=== PATIENT | male | born 1930 | race Caucasian/White ===

== ENCOUNTER 2016-12-18 21:19 | Emergency (ER) | payer OTHER ==
[~2016-12-18 21:19] MED LIST: CORT1SOL EACH EAR; DORZ2SOL7 EACH EYE; LEVO25TA4 PO; NUCY75TA4 PO; POLY10O LEFT EYE; VENTAER INH; WALKER/ADULT/FO1 MIS
[2016-12-18 21:24] VITALS: BP 147/84; PULSE 98; RESP 20; TEMP 98.1; O2SAT 98
--- NOTE | 2016-12-18 23:05 | RADHPO ---
EXAM DATE/TIME: 12/18/2016 22:55 [facility] COMPARISON: No previous studies available for comparison. INDICATIONS : Cough and congestion for several days. MEDICAL HISTORY : None. SURGICAL HISTORY : None. ENCOUNTER: Initial ACUITY: 4 - 6 days PAIN SCORE: 2/10 LOCATION: Bilateral chest FINDINGS: PA and lateral views of the chest demonstrate the lungs to be symmetrically aerated without evidence of mass, infiltrate or effusion. The cardiomediastinal contours are unremarkable. Spurs are seen in the thoracic spine. CONCLUSION: No acute disease. Tyler Luz MD on December 18, 2016 at 23:03 Board Certified Radiologist. This report was verified electronically.
[2016-12-18] MEDS ORDERED: CEPH-460 PO (23:11)
--- NOTE | 2016-12-18 23:11 | PD ---
HPI Chief Complaint: Cold / Flu Symptoms Time Seen by Provider: 22:24 Travel History International Travel<30 days: No Contact w/Intl Traveler<30days: No Traveled to known affect area: No History of Present Illness HPI Is an 86-year-old male presents emergency Department with upper respiratory symptoms including cough and congestion for the past 3 days, also complains of redness around his left ear. Patient states that he is not seen any other physician denies any fevers. Unclear as to whether his sputum production is coming from postnasal drip or from his lungs. Patient has not spit out the congestion does not know what color. Denies any shortness of breath denies any generalized symptoms including nausea vomiting diarrhea fever abdominal pain chest pain. PFSH Past Medical History Arthritis: Yes Asthma: Yes Blood Disorders: No Cancer: Yes (prostate) Cardiovascular Problems: No COPD: Yes Diabetes: No Diminished Hearing: Yes ([place] ) Endocrine: Yes Gastrointestinal Disorders: No Glaucoma: Yes Hepatitis: No Hiatal Hernia: No Hypertension: No Immune Disorder: No Implanted Vascular Access Dvce: No Medical other: Yes (SINUS CONGESTION) Musculoskeletal: Yes (CHRONIC BACK PAIN) Psychiatric: No Respiratory: Yes (Asthma ) Thyroid Disease: Yes Past Surgical History Abdominal Surgery: Yes (CHOLESTECTOMY) Cholecystectomy: Yes Genitourinary Surgery: Yes (prostate removed) Joint Replacement: Yes (left knee ) Other Surgery: Yes (letf and right knee surgery, lumbar surgery) Social History Alcohol Use: No (QUIT 5 YEARS AGO) Tobacco Use: No (quit 10 yrs smoked 5 cigars a day and 1 ppd cigs) Substance Use: No Allergies-Medications (Allergen,Severity, Reaction): Coded Allergies: Naprosyn (Verified Allergy, Severe, Rash, 12/18/16) Novocain (Verified Allergy, Severe, HEART RACE, 12/18/16) Penicillin (Verified Allergy, Severe, RASH, 12/18/16) WAS STUNG BY BEE AT THE SAME TIME TAKING THE MEDICATION AND NOT SURE IF RASH FROM BEE OR PCN Procaine (Verified Allergy, Unknown, PT DOES NOT KNOW, 12/18/16) Reported Meds & Prescriptions Reported Meds & Active Scripts Active Keflex (Cephalexin) 500 Mg Cap 500 Mg PO Q6H 7 Days Ventolin Hfa 18 GM Inh (Albuterol Sulfate) 90 Mcg/Act Aer 1 Puff INH Q4H PRN Walker/Adult/Folding (Device) 1 Mis Mis 1 Ea .ROUTE DIRECTED Reported Nucynta (Tapentadol) 75 Mg Tab 100 Mg PO Q4H PRN Cosopt Opth Drops (Dorzolamide-Timolol Opth Drops) 22.3-6.8 Mg/Ml Soln 1 Drop EACH EYE BID Levothyroxine (Levothyroxine Sodium) 25 Mcg Tab 25 Mcg PO MOWEFR Review of Systems Except as stated in HPI: all other systems reviewed are Neg Physical Exam Narrative GENERAL: Well-developed well-nourished no apparent distress, appears quite well and younger than stated age. SKIN: Warm and dry. There is some mild erythema on the left side of his face surrounding his left ear. HEAD: Atraumatic. Normocephalic. EYES: Pupils equal and round. No scleral icterus. No injection or drainage. ENT: No nasal bleeding or discharge. Mucous membranes pink and moist. TMs and canals clear bilaterally. Oropharynx clear and moist. NECK: Trachea midline. No JVD. CARDIOVASCULAR: Regular rate and rhythm. No murmur appreciated. RESPIRATORY: No accessory muscle use. Clear to auscultation. Breath sounds equal bilaterally. No increased work of breathing, no retractions. GASTROINTESTINAL: Abdomen soft, non-tender, nondistended. Hepatic and splenic margins not palpable. MUSCULOSKELETAL: No obvious deformities. No clubbing. No cyanosis. No edema. NEUROLOGICAL: Awake and alert. No obvious cranial nerve deficits. Motor grossly within normal limits. Normal speech. PSYCHIATRIC: Appropriate mood and affect; insight and judgment normal. Data Data Last Documented VS Vital Signs Date Time Temp Pulse Resp B/P Pulse Ox O2 Delivery O2 Flow Rate FiO2 12/18/16 23:24 76 17 118/70 98 12/18/16 21:24 98.1 Orders Chest, Pa & Lat (12/18/16 ) [facility] Medical Decision Making Medical Screen Exam Complete: Yes Emergency Medical Condition: Yes Differential Diagnosis Cough, URI, pneumonia, facial cellulitis, atopic dermatitis, otitis externa. Narrative Course Patient roomed in the emergency department, appears quite well and in no apparent distress. Chest x-ray shows no acute cardiopulmonary abnormality. Last 24 hours Impressions Chest X-Ray 12/18/16 0000 Signed Impressions: Service Date/Time: Sunday, December 18, 2016 22:55 - CONCLUSION: No acute disease. Tyler Luz MD Patient vital signs are reassuring. He has no increased work of breathing is stable for discharge. The rash is left side of his face is unknown etiology. Could be consistent with malignant otitis externa however there is no otitis externa on his examination ear canals. We'll place on antibiotics and discussed need for follow-up with his primary care physician and return to ED criteria. Diagnosis Primary Impression: Rash of face Additional Impression: URI (upper respiratory infection) Qualified Code: J06.9 - Upper respiratory tract infection, unspecified type Med/Other Pt SpecificInfo: Prescription(s) given Scripts Cephalexin (Keflex)500 Mg [id number] Mg PO Q6H 7 Days Ref 0 Prov:Trey Alvares MD 12/18/16 Disposition: 01 DISCHARGE HOME Condition: Stable Trey Alvares MD Dec 18, 2016 23:11
[2016-12-18 23:24] VITALS: BP 118/70
== END 2016-12-18 23:34 | disposition home or self-care (01) ==
LOC: PHED 21:19
DX: R21 Rash and other nonspecific skin eruption (principal); J06.9 Acute upper respiratory infection, unspecified; R05 Cough; E07.9 Disorder of thyroid, unspecified; H91.90 Unspecified hearing loss, unspecified ear; Z87.39 Personal history of other diseases of the musculoskeletal system and connective tissue; Z87.09 Personal history of other diseases of the respiratory system; Z85.46 Personal history of malignant neoplasm of prostate; Z86.69 Personal history of other diseases of the nervous system and sense organs; Z87.891 Personal history of nicotine dependence
CPT/HCPCS: 71020; 99283

== ENCOUNTER 2017-01-17 12:06 | Emergency (ER) | payer OTHER ==
[~2017-01-17] VITALS: Ht 177.8 cm; Wt 90.5 kg
[~2017-01-17 12:06] MED LIST changes: +CEPH-460 PO; -CORT1SOL EACH EAR; -POLY10O LEFT EYE
[2017-01-17 12:21] VITALS: BP 126/87; PULSE 112; RESP 18; TEMP 97.6; O2SAT 96
[2017-01-17 14:00] VITALS: BP 116/81; PULSE 99; RESP 18; O2SAT 96
--- NOTE | 2017-01-17 14:06 | PD ---
HPI Chief Complaint: Cold / Flu Symptoms Time Seen by Provider: 13:51 Travel History International Travel<30 days: No Contact w/Intl Traveler<30days: No Traveled to known affect area: No History of Present Illness HPI This 86-year-old male says he has not been feeling well for several days. He's had a cough and is had a loss of appetite. He has not had a good appetite the last 3 days. He has been a smoker for 70 years. He stopped several years ago and diagnosed with COPD. he has not been sleeping well and he has not been eating well. Patient states he has been sick for 4-5 days PFSH Past Medical History Arthritis: Yes Asthma: Yes Blood Disorders: No Cancer: Yes (Prostate ) Cardiovascular Problems: No COPD: Yes Diabetes: No Diminished Hearing: Yes ([place]) Endocrine: Yes Gastrointestinal Disorders: No Glaucoma: Yes Hepatitis: No Hiatal Hernia: No Hypertension: No Immune Disorder: No Implanted Vascular Access Dvce: No Musculoskeletal: Yes (Chronic back pain ) Psychiatric: No Respiratory: Yes (Asthma ) Thyroid Disease: Yes Tetanus Vaccination: < 5 Years Influenza Vaccination: Yes Past Surgical History Abdominal Surgery: Yes (CHOLESTECTOMY) Cholecystectomy: Yes Genitourinary Surgery: Yes (Prostatectomy ) Joint Replacement: Yes (Lt. knee) Other Surgery: Yes (BL knees, lumbar ) Social History Alcohol Use: No Tobacco Use: No Substance Use: No Allergies-Medications (Allergen,Severity, Reaction): Coded Allergies: Naprosyn (Verified Allergy, Severe, Rash, 01/17/17) Novocain (Verified Allergy, Severe, HEART RACE, 01/17/17) Penicillin (Verified Allergy, Severe, RASH, 01/17/17) WAS STUNG BY BEE AT THE SAME TIME TAKING THE MEDICATION AND NOT SURE IF RASH FROM BEE OR PCN Procaine (Verified Allergy, Unknown, PT DOES NOT KNOW, 01/17/17) Reported Meds & Prescriptions Reported Meds & Active Scripts Active Ventolin Hfa 18 GM Inh (Albuterol Sulfate) 90 Mcg/Act Aer 1 Puff INH Q4H PRN Reported Cosopt Opth Drops (Dorzolamide-Timolol Opth Drops) 22.3-6.8 Mg/Ml Soln 1 Drop EACH EYE BID Levothyroxine (Levothyroxine Sodium) 25 Mcg Tab 25 Mcg PO MOWEFR Review of Systems General / Constitutional: No: Fever, Chills Eyes: No: Diploplia, Blurred Vision HENT: No: Headaches Cardiovascular: No: Chest Pain or Discomfort Respiratory: Positive: Cough, Shortness of Breath Gastrointestinal: Positive: Loss of Appetite, No: Diarrhea Genitourinary: No: Urgency, Frequency Musculoskeletal: No: Myalgias Skin: No Rash, No Itching Neurologic: Positive: Weakness Endocrine: No: Heat Intolerance Hematologic/Lymphatic: No: Easy Bruising Physical Exam Narrative GENERAL: Well-developed male SKIN: Warm and dry. HEAD: Atraumatic. Normocephalic. EYES: Pupils equal and round. No scleral icterus. No injection or drainage. ENT: No nasal bleeding or discharge. Mucous membranes pink and moist. NECK: Trachea midline. No JVD. CARDIOVASCULAR: Regular rate and rhythm. No murmur appreciated. RESPIRATORY: No accessory muscle use. Clear to auscultation. There are occasional rhonchi Breath sounds equal bilaterally. GASTROINTESTINAL: Abdomen soft, non-tender, nondistended. Hepatic and splenic margins not palpable. MUSCULOSKELETAL: No obvious deformities. No clubbing. No cyanosis. Trace bilateral edema. NEUROLOGICAL: Awake and alert. No obvious cranial nerve deficits. Motor grossly within normal limits. Normal speech. PSYCHIATRIC: Appropriate mood and affect; insight and judgment normal. Data Data Last Documented VS Vital Signs Date Time Temp Pulse Resp B/P Pulse Ox O2 Delivery O2 Flow Rate FiO2 01/17/17 14:00 99 18 116/81 96 Room Air 01/17/17 12:21 97.6 Orders Complete Blood Count With Diff (01/17/17 14:02) Comprehensive Metabolic Panel (01/17/17 14:02) Influenzae A/B Antigen (01/17/17 14:02) Chest, Single Ap (01/17/17 14:02) Labs Laboratory Tests Test 01/17/17 14:25 White Blood Count 12.6 TH/MM3 Red Blood Count 4.84 MIL/MM3 Hemoglobin 13.4 GM/DL Hematocrit 41.3 % Mean Corpuscular Volume 85.4 FL Mean Corpuscular Hemoglobin 27.7 PG Mean Corpuscular Hemoglobin 32.5 % Concent Red Cell Distribution Width 14.1 % Platelet Count 241 TH/MM3 Mean Platelet Volume 8.1 FL Neutrophils (%) (Auto) 33.6 % Lymphocytes (%) (Auto) 53.1 % Monocytes (%) (Auto) 11.6 % Eosinophils (%) (Auto) 0.8 % Basophils (%) (Auto) 0.9 % Neutrophils # (Auto) 4.3 TH/MM3 Lymphocytes # (Auto) 6.6 TH/MM3 Monocytes # (Auto) 1.5 TH/MM3 Eosinophils # (Auto) 0.1 TH/MM3 Basophils # (Auto) 0.1 TH/MM3 CBC Comment AUTO DIFF Differential Total Cells 100 Counted Neutrophils % (Manual) 42 % Band Neutrophils % 1 % Lymphocytes % 32 % Monocytes % 7 % Neutrophils # (Manual) 5.4 TH/MM3 Differential Comment FINAL DIFF MANUAL Atypical Lymphocytes 18 % Platelet Estimate NORMAL Platelet Morphology Comment NORMAL Red Cell Morphology Comment NORMAL Sodium Level 141 MEQ/L Potassium Level 4.2 MEQ/L Chloride Level 104 MEQ/L Carbon Dioxide Level 27.0 MEQ/L Anion Gap 10 MEQ/L Blood Urea Nitrogen 15 MG/DL Creatinine 1.00 MG/DL Estimat Glomerular Filtration 71 ML/MIN Rate Random Glucose 108 MG/DL Calcium Level 8.8 MG/DL Total Bilirubin 1.0 MG/DL Aspartate Amino Transf 100 U/L (AST/SGOT) Alanine Aminotransferase 71 U/L (ALT/SGPT) Alkaline Phosphatase 99 U/L Total Protein 7.1 GM/DL Albumin 2.8 GM/DL MDM Medical Decision Making Medical Screen Exam Complete: Yes Emergency Medical Condition: Yes Medical Record Reviewed: Yes Differential Diagnosis Differential includes pneumonia, influenza, viral syndrome Narrative Course Tests for influenza is positive for influenza a. Patient has been sick for 4-5 days; prescribed Tamiflu. I will recommend Tylenol or aspirin. He is to force fluids. Minimal parenchymal density at the bases described. His white count shows a predominance of lymphocytes and I will not prescribe antibiotics. He is stable for discharge Diagnosis Primary Impression: Influenza A Additional Instructions: Take Tylenol or Motrin for fever, force fluids Disposition: 01 DISCHARGE HOME Condition: Stable Khang Bey MD Jan 17, 2017 14:06
[2017-01-17 14:37] LABS: AUTOMATED NEUTROPHIL # 4.3 TH/MM3 (1.8-7.7); BASOPHIL # 0.1 TH/MM3 (0-0.2); BASOPHIL % 0.9 % (0.0-2.0); EOSINOPHIL # 0.1 TH/MM3 (0-0.4); EOSINOPHIL % 0.8 % (0.0-4.0); HEMATOCRIT 41.3 % (39.0-51.0); LYMPH % 53.1 % (9.0-44.0); LYMPHOCYTE # 6.6 TH/MM3 (1.0-4.8); MEAN CELL VOLUME 85.4 FL (80.0-100.0); MEAN CORPUSCULAR HEMOGLOBIN 27.7 PG (27.0-34.0); MEAN CORPUSCULAR HGB CONC 32.5 % (32.0-36.0); MONO % 11.6 % (0.0-8.0); NEUT % 33.6 % (16.0-70.0); PLATELET COUNT 241 TH/MM3 (150-450); RED BLOOD COUNT 4.84 MIL/MM3 (4.50-5.90); RED CELL DISTRIBUTION WIDTH 14.1 % (11.6-17.2); WHITE BLOOD COUNT 12.6 TH/MM3 (4.0-11.0)
[2017-01-17 14:42] LABS: HEMO FLAGS AUTO DIFF
--- NOTE | 2017-01-17 14:42 | RADHPO ---
EXAM DATE/TIME: 01/17/2017 14:20 [facility] COMPARISON: CHEST SINGLE AP, October 25, 2016, 15:05. CHEST PA & LAT, December 18, 2016, 22:55. INDICATIONS : Short of breath, nausea. MEDICAL HISTORY : None. SURGICAL HISTORY : None. ENCOUNTER: Initial ACUITY: 1 week PAIN SCORE: 0/10 LOCATION: Bilateral chest FINDINGS: There is minimal parenchymal opacity at the left lung base. Right lung is grossly clear. No effusion suspected. Cardiomediastinal contours are stable. There are arthritic changes in the shoulders and sp ine. CONCLUSION: Minimal parenchymal opacity at the left lung base Tyler Baxter MD on January 17, 2017 at 14:39 Board Certified Radiologist. This report was verified electronically.
[2017-01-17 14:51] LABS: CHLORIDE 104 MEQ/L (98-107); POTASSIUM 4.2 MEQ/L (3.5-5.1); SODIUM (NA) 141 MEQ/L (136-145)
[2017-01-17 14:55] LABS: ANION GAP 10 MEQ/L (5-15); BLOOD UREA NITROGEN 15 MG/DL (7-18)
[2017-01-17 14:58] LABS: ALT (GPT) 71 U/L (12-78); AST (GOT) 100 U/L (15-37); GLOMERULAR FILTRATION RATE 71 ML/MIN (>89)
[2017-01-17 15:01] LABS: ALKALINE PHOSPHATASE 99 U/L (45-117)
[2017-01-17 15:11] LABS: ATYPICAL LYMPHOCYTES 18 % (0-0); BANDS 1 % (0-6); NEUTROPHIL # MANUAL DIFF 5.4 TH/MM3 (1.8-7.7); POLYS (SEG NEUTROPHILS) 42 % (16-70); WBC DIFF SAMPLE 100
[2017-01-17 15:12] LABS: PLATELET ESTIMATE SMEAR NORMAL (NORMAL); PLATELET MORPHOLOGY NORMAL (NORMAL); SCAN/DIFF FINAL DIFF MANUAL
[2017-01-17 15:35] VITALS: BP 107/69; PULSE 95; RESP 18; O2SAT 100
== END 2017-01-17 15:40 | disposition home or self-care (01) ==
LOC: PHED 12:06
DX: J09.X2 Influenza due to identified novel influenza A virus with other respiratory manifestations (principal); J44.9 Chronic obstructive pulmonary disease, unspecified
CPT/HCPCS: 71010; 80053; 85007; 85027; 87804; 99283

== ENCOUNTER 2017-04-03 18:31 | Emergency (ER) | payer OTHER ==
[~2017-04-03] VITALS: Ht 167.6 cm; Wt 91.5 kg
[~2017-04-03 18:31] MED LIST changes: -CEPH-460 PO; -NUCY75TA4 PO; -WALKER/ADULT/FO1 MIS
[2017-04-03 18:35] VITALS: BP 123/73; PULSE 79; RESP 20; TEMP 97.9; O2SAT 96
[2017-04-03] MEDS ORDERED: methylPREDNISolone SOD SUCC 125 MG/2 ML VIAL IVP ONE (18:45)
[2017-04-03] MEDS ORDERED: SODIUM CHLORIDE 0.9% FLUSH 10 ML FLUSH IVF PRN (18:45)
--- NOTE | 2017-04-03 18:46 | PD ---
HPI Chief Complaint: Respiratory Symptoms Time Seen by Provider: 18:40 Travel History International Travel<30 days: No Contact w/Intl Traveler<30days: No Traveled to known affect area: No History of Present Illness HPI Patient is an 86 year old male with history of COPD and hypothyroidism presents to ER for evaluation of wheezing, cough and sob x 1 day. Reports that he was using his neb Treatments with no relief of symptoms. Patient reports that his cough is productive, no fevers or chills. Denies any chest pain or shortness breath. PFSH Past Medical History Hx Anticoagulant Therapy: Yes (ASA DAILY) Arthritis: Yes Asthma: Yes Blood Disorders: No Cancer: Yes (Prostate ) Cardiovascular Problems: No COPD: Yes Diabetes: No Diminished Hearing: Yes ([place]) Endocrine: Yes Gastrointestinal Disorders: No Glaucoma: Yes Hepatitis: No Hiatal Hernia: No Hypertension: No Immune Disorder: No Implanted Vascular Access Dvce: No Musculoskeletal: Yes (Chronic back pain ) Psychiatric: No Respiratory: Yes (COPD) Thyroid Disease: Yes Past Surgical History Abdominal Surgery: Yes (CHOLESTECTOMY) Cholecystectomy: Yes Genitourinary Surgery: Yes (Prostatectomy ) Joint Replacement: Yes (Lt. knee) Other Surgery: Yes (BL knees, lumbar ) Social History Alcohol Use: No Tobacco Use: No Substance Use: No Allergies-Medications (Allergen,Severity, Reaction): Coded Allergies: Naprosyn (Verified Allergy, Severe, Rash, 04/03/17) Novocain (Verified Allergy, Severe, HEART RACE, 04/03/17) Penicillin (Verified Allergy, Severe, RASH, 04/03/17) WAS STUNG BY BEE AT THE SAME TIME TAKING THE MEDICATION AND NOT SURE IF RASH FROM BEE OR PCN Procaine (Verified Allergy, Unknown, PT DOES NOT KNOW, 04/03/17) Reported Meds & Prescriptions Reported Meds & Active Scripts Active Ventolin Hfa 18 GM Inh (Albuterol Sulfate) 90 Mcg/Act Aer 1 Puff INH Q4H PRN Reported Cosopt Opth Drops (Dorzolamide-Timolol Opth Drops) 22.3-6.8 Mg/Ml Soln 1 Drop EACH EYE BID Levothyroxine (Levothyroxine Sodium) 25 Mcg Tab 25 Mcg PO MOWEFR Review of Systems General / Constitutional: No: Fever Eyes: No: Visual changes HENT: No: Headaches Cardiovascular: No: Chest Pain or Discomfort Respiratory: Positive: Cough, Wheezing, No: Shortness of Breath Gastrointestinal: No: Abdominal Pain Genitourinary: No: Dysuria Musculoskeletal: No: Pain Skin: No Rash Neurologic: No: Weakness Psychiatric: No: Depression Endocrine: No: Polydipsia Hematologic/Lymphatic: No: Easy Bruising Physical Exam Narrative GENERAL: Moderate distress SKIN: Focused skin assessment warm/dry. HEAD: Atraumatic. Normocephalic. EYES: Pupils equal and round. No scleral icterus. No injection or drainage. ENT: No nasal bleeding or discharge. Mucous membranes pink and moist. NECK: Trachea midline. No JVD. CARDIOVASCULAR: Regular rate and rhythm. No murmur appreciated. RESPIRATORY: No accessory muscle use. Patient with scattered wheezing on exam GASTROINTESTINAL: Abdomen soft, non-tender, nondistended. Hepatic and splenic margins not palpable. MUSCULOSKELETAL: No obvious deformities. No clubbing. No cyanosis. No edema. NEUROLOGICAL: Awake and alert. No obvious cranial nerve deficits. Motor grossly within normal limits. Normal speech. PSYCHIATRIC: Appropriate mood and affect; insight and judgment normal. Data Data Last Documented VS Vital Signs Date Time Temp Pulse Resp B/P Pulse Ox O2 Delivery O2 Flow Rate FiO2 04/03/17 18:35 97.9 79 20 123/73 96 Orders Complete Blood Count With Diff (04/03/17 18:44) Comprehensive Metabolic Panel (04/03/17 18:44) B-Type Natriuretic Peptide (04/03/17 18:44) Act Partial Throm Time (Ptt) (04/03/17 18:44) Prothrombin Time / Inr (Pt) (04/03/17 18:44) Magnesium (Mg) (04/03/17 18:44) Iv Access Insert/Monitor (04/03/17 18:44) Electrocardiogram (04/03/17 18:44) Ecg Monitoring (04/03/17 18:44) Oximetry (04/03/17 18:44) Chest, Single Ap (04/03/17 18:44) Sodium Chloride 0.9% Flush (Ns Flush) (04/03/17 18:45) Methylprednisolone So Succ Inj (Solumedr (04/03/17 18:45) Albuterol-Ipratropium Neb (Duoneb Neb) (04/03/17 18:45) [facility] Medical Decision Making Medical Screen Exam Complete: Yes Emergency Medical Condition: Yes Interpretation(s) Vital Signs Date Time Temp Pulse Resp B/P Pulse Ox O2 Delivery O2 Flow Rate FiO2 04/03/17 18:35 97.9 79 20 123/73 96 Differential Diagnosis Pneumonia, COPD exacerbation, viral syndrome Narrative Course 86-year-old male who presents to emergency room with complaints of wheezing and coughing for the past day. Patient with diffuse wheezing on exam, patient with most likely COPD exacerbation, x-ray of chest ordered, steroids ordered, neb treatments ordered. patient signed out to dr. escalera at change of shift Grace Rios DO Apr 03, 2017 18:46
[2017-04-03] MEDS: RESP: ALBUTEROL 2.5 MG/IPRATROPIUM 0.5 MG NEB (SCH) INH (18:50)
[2017-04-03 19:00] VITALS: O2SAT 92
[2017-04-03 19:02] LABS: AUTOMATED NEUTROPHIL # 4.8 TH/MM3 (1.8-7.7); BASOPHIL # 0.1 TH/MM3 (0-0.2); EOSINOPHIL # 0.3 TH/MM3 (0-0.4); EOSINOPHIL % 3.7 % (0.0-4.0); HEMATOCRIT 38.3 % (39.0-51.0); HEMO FLAGS DIFF FINAL; LYMPH % 27.3 % (9.0-44.0); LYMPHOCYTE # 2.3 TH/MM3 (1.0-4.8); MEAN CELL VOLUME 87.8 FL (80.0-100.0); MEAN CORPUSCULAR HEMOGLOBIN 28.4 PG (27.0-34.0); MEAN CORPUSCULAR HGB CONC 32.3 % (32.0-36.0); MONO % 11.4 % (0.0-8.0); NEUT % 56.6 % (16.0-70.0); PLATELET COUNT 205 TH/MM3 (150-450); RED BLOOD COUNT 4.36 MIL/MM3 (4.50-5.90); RED CELL DISTRIBUTION WIDTH 13.2 % (11.6-17.2); WHITE BLOOD COUNT 8.5 TH/MM3 (4.0-11.0)
--- NOTE | 2017-04-03 19:06 | RADHPO ---
EXAM DATE/TIME: 04/03/2017 19:00 [facility] COMPARISON: CHEST SINGLE AP, January 17, 2017, 14:20. INDICATIONS : Shortness of breath for 3 days MEDICAL HISTORY : Chronic obstructive pulmonary disease. Asthma SURGICAL HISTORY : None. ENCOUNTER: Initial ACUITY: 3 days PAIN SCORE: 0/10 LOCATION: Bilateral chest FINDINGS: A single view of the chest demonstrates the lungs to be symmetrically aerated without evidence of mas s, infiltrate or effusion. The cardiomediastinal contours are unremarkable. Chronic right rotator cu ff degeneration is noted with superior migration of the humeral head and degenerative change in the c hronic clavicular joint. CONCLUSION: No acute disease. Walt Jones MD on April 03, 2017 at 19:04 Board Certified Radiologist. This report was verified electronically.
[2017-04-03 19:14] LABS: CHLORIDE 108 MEQ/L (98-107); POTASSIUM 4.3 MEQ/L (3.5-5.1); SODIUM (NA) 142 MEQ/L (136-145)
[2017-04-03 19:18] LABS: ANION GAP 4 MEQ/L (5-15); BICARBONATE 29.9 MEQ/L (21.0-32.0); BLOOD UREA NITROGEN 11 MG/DL (7-18)
[2017-04-03 19:20] LABS: APTT (PATIENT) 29.7 SEC (24.3-30.1); INTERNATIONAL NORMALIZED RATIO 1.1 RATIO; PROTHROMBIN TIME - PATIENT 11.8 SEC (9.8-11.6)
[2017-04-03 19:21] LABS: ALT (GPT) 27 U/L (12-78); AST (GOT) 27 U/L (15-37)
[2017-04-03 19:22] LABS: GLOMERULAR FILTRATION RATE 87 ML/MIN (>89)
[2017-04-03 19:23] LABS: TOTAL BILIRUBIN ADULT 0.7 MG/DL (0.2-1.0)
--- NOTE | 2017-04-03 19:23 | PD ---
Physical Exam Date Seen by Provider: Apr 03, 2017 Time Seen by Provider: 19:14 Narrative Accepted in transfer of care from Dr. Rios GENERAL: Well-developed well-nourished male in no acute distress no respiratory distress presently receiving and nebulized treatment. SKIN: Warm and dry. HEAD: Normocephalic. EYES: No scleral icterus. No injection or drainage. NECK: Supple, trachea midline. No JVD or lymphadenopathy. CARDIOVASCULAR: Regular rate and rhythm without murmurs, gallops, or rubs. RESPIRATORY: Breath sounds equal bilaterally few expiratory wheezes. No accessory muscle use. Data Data Last Documented VS Vital Signs Date Time Temp Pulse Resp B/P Pulse Ox O2 Delivery O2 Flow Rate FiO2 04/03/17 18:35 97.9 79 20 123/73 96 Orders Complete Blood Count With Diff (04/03/17 18:44) Comprehensive Metabolic Panel (04/03/17 18:44) B-Type Natriuretic Peptide (04/03/17 18:44) Act Partial Throm Time (Ptt) (04/03/17 18:44) Prothrombin Time / Inr (Pt) (04/03/17 18:44) Magnesium (Mg) (04/03/17 18:44) Iv Access Insert/Monitor (04/03/17 18:44) Electrocardiogram (04/03/17 18:44) Ecg Monitoring (04/03/17 18:44) Oximetry (04/03/17 18:44) Chest, Single Ap (04/03/17 18:44) Sodium Chloride 0.9% Flush (Ns Flush) (04/03/17 18:45) Methylprednisolone So Succ Inj (Solumedr (04/03/17 18:45) Albuterol-Ipratropium Neb (Duoneb Neb) (04/03/17 18:45) Labs Laboratory Tests Test 04/03/17 18:45 White Blood Count 8.5 TH/MM3 Red Blood Count 4.36 MIL/MM3 Hemoglobin 12.4 GM/DL Hematocrit 38.3 % Mean Corpuscular Volume 87.8 FL Mean Corpuscular Hemoglobin 28.4 PG Mean Corpuscular Hemoglobin 32.3 % Concent Red Cell Distribution Width 13.2 % Platelet Count 205 TH/MM3 Mean Platelet Volume 7.5 FL Neutrophils (%) (Auto) 56.6 % Lymphocytes (%) (Auto) 27.3 % Monocytes (%) (Auto) 11.4 % Eosinophils (%) (Auto) 3.7 % Basophils (%) (Auto) 1.0 % Neutrophils # (Auto) 4.8 TH/MM3 Lymphocytes # (Auto) 2.3 TH/MM3 Monocytes # (Auto) 1.0 TH/MM3 Eosinophils # (Auto) 0.3 TH/MM3 Basophils # (Auto) 0.1 TH/MM3 CBC Comment DIFF FINAL Differential Comment Prothrombin Time 11.8 SEC Prothromb Time International 1.1 RATIO Ratio Activated Partial 29.7 SEC Thromboplast Time Sodium Level 142 MEQ/L Potassium Level 4.3 MEQ/L Chloride Level 108 MEQ/L Carbon Dioxide Level 29.9 MEQ/L Anion Gap 4 MEQ/L Blood Urea Nitrogen 11 MG/DL Creatinine 0.84 MG/DL Estimat Glomerular Filtration 87 ML/MIN Rate Random Glucose 96 MG/DL Calcium Level 8.4 MG/DL Magnesium Level 2.0 MG/DL Total Bilirubin 0.7 MG/DL Aspartate Amino Transf 27 U/L (AST/SGOT) Alanine Aminotransferase 27 U/L (ALT/SGPT) Alkaline Phosphatase 91 U/L B-Type Natriuretic Peptide 123 PG/ML Total Protein 7.3 GM/DL Albumin 3.3 GM/DL [facility] Medical Record Reviewed: Yes Supervised Visit with PATRICIO: No Interpretation(s) EKG normal sinus rhythm rate [address] elevation, right bundle branch block ; noted 09/2016 Last Impressions Chest X-Ray 04/03/17 [id number] Signed Impressions: Service Date/Time: Monday, April 03, 2017 19:00 - CONCLUSION: No acute disease. Walt Jones MD Vital Signs Date Time Temp Pulse Resp B/P Pulse Ox O2 Delivery O2 Flow Rate FiO2 04/03/17 18:35 97.9 79 20 123/73 96 CBC & BMP Diagram 04/03/17 18:45 BNP: 123, min elevated Differential Diagnosis Accepted in transfer of care from Dr. Rios, please refer to her dictation Narrative Course Accepted in transfer of care from Dr. Rios, follow up of med response and disposition Patient reassessed lung sounds are clear, patient able to ambulate about the ED without dyspnea; reports feels markedly improved since DuoNeb treatments. Patient has nebulizer at home and needs medication for his nebulizer. Patient is stable at this time for outpatient management and close follow-up with his primary care physician. We'll prescribe DuoNeb solution for his nebulizer and a Medrol Dosepak with recommended close follow-up with primary care provider and return to the emergency department for any recurrence of symptoms or change in condition. Patient understands diagnosis and discharge plan/recommendations. Diagnosis Primary Impression: COPD (chronic obstructive pulmonary disease) Referrals: Primary Care Physician 2 days Patient Instructions: General Instructions Additional Instruction: Use nebulized treatments as prescribed Complete course of steroid Follow-up with primary care provider call office in a.m. to schedule follow-up appointment Return to the emergency for free concerns or change in condition Monitor temperature for fever and take acetaminophen/Tylenol for fever 100.4F or greater Return to the emergency department for fever, pain, recurrent symptoms, or any concerns Med/Other Pt SpecificInfo: Prescription(s) given Scripts Methylprednisolone Dosepak (Medrol Dosepak)4 Mg Dspk4 Mg PO DIRECTED #1 DSPK Ref 0 Per Pharmacist direction Prov:Naz Gray MD 04/03/17 Ipratropium-Albuterol Neb (Duoneb)0.5-2.5 Mg/3 Ml Neb1 Nebule INH Q4-6H #180 NEBULE Ref 0 Prov:Naz Gray MD 04/03/17 Disposition: 01 DISCHARGE HOME Condition: Stable Naz Gray MD Apr 03, 2017 19:23
[2017-04-03 19:24] LABS: ALKALINE PHOSPHATASE 91 U/L (45-117)
[2017-04-03] MEDS ORDERED: MEDR4PAK PO (20:00)
[2017-04-03] MEDS ORDERED: IPRASOL INH (20:00)
[2017-04-03 20:18] VITALS: BP 121/69; TEMP 98
--- NOTE | 2017-04-04 14:41 | EKG ---
Date Performed: 04/03/2017 Time Performed: 18:51:10 PTAGE: 86 years EKG: Sinus rhythm with borderline 1st degree A-V block Leftward axis Right bundle branch block Low QRS voltages in pre cordial leads Abnormal ECG PREVIOUS TRACING : 10/25/2016 14.26 Compared to previous tracing, first-degree AV block is new. DOCTOR: Joe Irene Interpretating Date/Time 04/04/2017 14:39:55
== END 2017-04-03 20:27 | disposition home or self-care (01) ==
LOC: PHED 18:31
DX: J44.9 Chronic obstructive pulmonary disease, unspecified (principal); J45.909 Unspecified asthma, uncomplicated; Z79.899 Other long term (current) drug therapy
CPT/HCPCS: 71010; 80053; 83735; 83880; 85025; 85610; 85730; 93005; 94640; 94664; 96374; 99285; J2930

== ENCOUNTER 2017-07-21 16:26 | Emergency (ER) | payer OTHER ==
[~2017-07-21] VITALS: Ht 167.6 cm; Wt 94.0 kg
[~2017-07-21 16:26] MED LIST changes: +IPRASOL INH; +MEDR4PAK PO
[2017-07-21 16:42] VITALS: BP 138/69; PULSE 85; RESP 16; TEMP 97.9; O2SAT 95
[2017-07-21] MEDS ORDERED: LEVO50TA4 PO (17:08)
[2017-07-21] MEDS ORDERED: AZIT250T3 PO (17:29)
[2017-07-21] MEDS ORDERED: PRED20 PO (17:29)
--- NOTE | 2017-07-21 17:30 | PD ---
HPI Chief Complaint: Cold / Flu Symptoms Time Seen by Provider: 17:06 Travel History International Travel<30 days: No Contact w/Intl Traveler<30days: No Traveled to known affect area: No History of Present Illness HPI This is an 87-year-old male who has a history of COPD who presents to the emergency department with increasing shortness of breath and productive cough with echols sputum, constant, moderate severity associated with a fever 200 several days ago. He denies any chest pain. He says he's been using his nebulizer once a day and it really helps him but he was afraid to use it more than once a day he wasn't sure if he was allowed. PFSH Past Medical History Hx Anticoagulant Therapy: Yes (ASA DAILY) Arthritis: Yes Asthma: Yes Blood Disorders: No Cancer: Yes (Prostate ) Cardiovascular Problems: No COPD: Yes Diabetes: No Diminished Hearing: Yes ([place]) Endocrine: Yes Gastrointestinal Disorders: No Glaucoma: Yes Hepatitis: No Hiatal Hernia: No Hypertension: No Immune Disorder: No Implanted Vascular Access Dvce: No Musculoskeletal: Yes (Chronic back pain ) Psychiatric: No Respiratory: Yes (COPD) Thyroid Disease: Yes Past Surgical History Abdominal Surgery: Yes (CHOLESTECTOMY) Cholecystectomy: Yes Genitourinary Surgery: Yes (Prostatectomy ) Joint Replacement: Yes (LEFT KNEE) Other Surgery: Yes (BL knees, lumbar ) Social History Alcohol Use: No Tobacco Use: No (QUIT 2008) Substance Use: No Allergies-Medications (Allergen,Severity, Reaction): Coded Allergies: naproxen (Unverified Allergy, Severe, Rash, 07/21/17) penicillin G (Unverified Allergy, Severe, RASH, 07/21/17) WAS STUNG BY BEE AT THE SAME TIME TAKING THE MEDICATION AND NOT SURE IF RASH FROM BEE OR PCN procaine (Unverified Allergy, Unknown, PT DOES NOT KNOW, 07/21/17) Reported Meds & Prescriptions Reported Meds & Active Scripts Active Reported Levothyroxine (Levothyroxine Sodium) 50 Mcg Tab 50 Mcg PO DAILY Cosopt Opth Drops (Dorzolamide-Timolol Opth Drops) 22.3-6.8 Mg/Ml Soln 1 Drop EACH EYE BID Review of Systems Except as stated in HPI: all other systems reviewed are Neg Physical Exam Narrative GENERAL:Well appearing, no acute distress SKIN: Focused skin assessment warm and dry. HEAD: Atraumatic. Normocephalic. EYES: Pupils equal and round. No injection or drainage. ENT: Moist mucous membranes NECK: Trachea midline. CARDIOVASCULAR: Regular rate and rhythm. No murmur appreciated. RESPIRATORY: Coarse breath sounds bilaterally with expiratory wheezing, speaking full sentences with no accessory muscle use GASTROINTESTINAL: Abdomen soft, non-tender, nondistended. MUSCULOSKELETAL: No obvious deformities. NEUROLOGICAL: Awake and alert. No obvious cranial nerve deficits. Moving all extremities. PSYCHIATRIC: Appropriate mood and affect; insight and judgment normal. Data Data Last Documented VS Vital Signs Date Time Temp Pulse Resp B/P (MAP) Pulse Ox O2 Delivery O2 Flow Rate FiO2 07/21/17 16:42 97.9 85 16 138/69 (92) 95 MDM Medical Decision Making Medical Screen Exam Complete: Yes Emergency Medical Condition: Yes Medical Record Reviewed: Yes (patient was seen in April with similar symptoms and at that time had a chest x-ray and a BNP which were reassuring.) Differential Diagnosis COPD exacerbation, pneumonia, congestive heart failure, bronchitis Narrative Course This is an 87-year-old male who presents to the emergency department with increasing productive cough and shortness of breath. He has a history of COPD. His physical exam is consistent with COPD. He is not hypoxic and has no fevers I don't think he requires an x-ray at this time. Think he benefit from increased frequency bronchodilator treatments, prednisone and antibiotic therapy. Patient was offered nebulizers here but would prefer to take them at home. He will be discharged and can follow-up with his primary care physician as an outpatient. Diagnosis Primary Impression: COPD exacerbation Patient Instructions: General Instructions Additional Instructions: If you develop severe shortness of breath, chest pain, or difficulty breathing return to the emergency department. Use albuterol every 4 hours for the next 2 days. Then use as needed for wheezing. Complete your course of steroids. Complete your course of antibiotics. Follow up with your primary care physician in 2-3 days if your symptoms have not improved. Med/Other Pt SpecificInfo: Prescription(s) given Scripts Azithromycin (Azithromycin) 250 Mg Tab 250 MG PO DIRECTED for Infection, #6 TAB 0 Refills Take 2 tabs (500 mg) on day 1 then 1 tab daily x 4 days. Prov: Hanane Mann MD 07/21/17 Prednisone (Prednisone) 20 Mg Tab 40 MG PO DAILY for 5 Days, #10 TAB 0 Refills Prov: Hanane Mann MD 07/21/17 Disposition: 01 DISCHARGE HOME Condition: Stable Hanane Mann MD Jul 21, 2017 17:30
== END 2017-07-21 17:41 | disposition home or self-care (01) ==
LOC: PHED 16:26
DX: J44.1 Chronic obstructive pulmonary disease with (acute) exacerbation (principal); Z87.891 Personal history of nicotine dependence; Z79.82 Long term (current) use of aspirin; H40.9 Unspecified glaucoma; H91.90 Unspecified hearing loss, unspecified ear; Z88.0 Allergy status to penicillin
CPT/HCPCS: 99284

== ENCOUNTER 2017-12-19 20:35 | Emergency (ER) | payer OTHER ==
[~2017-12-19] VITALS: Ht 177.8 cm; Wt 100.1 kg
[~2017-12-19 20:35] MED LIST changes: +AZIT250T3 PO; -IPRASOL INH; -LEVO25TA4 PO; +LEVO50TA4 PO; -MEDR4PAK PO; +PRED20 PO; -VENTAER INH
[2017-12-19 20:56] VITALS: BP 131/64; PULSE 79; RESP 18; TEMP 98.4; O2SAT 97
[2017-12-19] MEDS ORDERED: SODIUM CHLORIDE 0.9% FLUSH 10 ML FLUSH IVF PRN (21:15)
[2017-12-19 21:16] LABS: AUTOMATED NEUTROPHIL # 3.2 TH/MM3 (1.8-7.7); BASOPHIL # 0.1 TH/MM3 (0-0.2); BASOPHIL % 0.7 % (0.0-2.0); EOSINOPHIL # 0.2 TH/MM3 (0-0.4); EOSINOPHIL % 1.8 % (0.0-4.0); HEMATOCRIT 37.4 % (39.0-51.0); LYMPH % 50.8 % (9.0-44.0); LYMPHOCYTE # 4.6 TH/MM3 (1.0-4.8); MEAN CELL VOLUME 88.2 FL (80.0-100.0); MEAN CORPUSCULAR HEMOGLOBIN 28.3 PG (27.0-34.0); MEAN CORPUSCULAR HGB CONC 32.1 % (32.0-36.0); MEAN PLATELET VOLUME 7.6 FL (7.0-11.0); MONO % 11.7 % (0.0-8.0); MONOCYTE # 1.1 TH/MM3 (0-0.9); PLATELET COUNT 253 TH/MM3 (150-450); RED BLOOD COUNT 4.24 MIL/MM3 (4.50-5.90); RED CELL DISTRIBUTION WIDTH 12.9 % (11.6-17.2); WHITE BLOOD COUNT 9.2 TH/MM3 (4.0-11.0)
[2017-12-19 21:22] LABS: CHLORIDE 103 MEQ/L (98-107); SODIUM (NA) 137 MEQ/L (136-145)
[2017-12-19 21:23] VITALS: O2SAT 97
[2017-12-19 21:26] LABS: ALBUMIN 3.3 GM/DL (3.4-5.0); BICARBONATE 31.1 MEQ/L (21.0-32.0); BLOOD UREA NITROGEN 16 MG/DL (7-18); CALCIUM 8.8 MG/DL (8.5-10.1); GLUCOSE,RANDOM 98 MG/DL (74-106)
[2017-12-19 21:28] LABS: INTERNATIONAL NORMALIZED RATIO 1.2 RATIO; PROTHROMBIN TIME - PATIENT 11.9 SEC (9.8-11.6)
[2017-12-19 21:29] LABS: ALT (GPT) 17 U/L (12-78); AST (GOT) 25 U/L (15-37); CREATININE 0.94 MG/DL (0.60-1.30); GLOMERULAR FILTRATION RATE 76 ML/MIN (>89)
[2017-12-19 21:31] LABS: TOTAL BILIRUBIN ADULT 0.4 MG/DL (0.2-1.0); TOTAL PROTEIN 7.3 GM/DL (6.4-8.2)
[2017-12-19 21:32] LABS: ALKALINE PHOSPHATASE 93 U/L (45-117)
[2017-12-19 21:34] LABS: TROPONIN I LESS THAN 0.02 NG/ML (0.02-0.05)
--- NOTE | 2017-12-19 21:43 | RADRPT ---
EXAM DATE/TIME: 12/19/2017 21:15 [facility] COMPARISON: CHEST PA & LAT, December 18, 2016, 22:55. INDICATIONS : Chest pain. MEDICAL HISTORY : Chronic obstructive pulmonary disease. Asthma SURGICAL HISTORY : None. ENCOUNTER: Initial ACUITY: 1 day PAIN SCORE: 3/10 LOCATION: Bilateral chest FINDINGS: PA and lateral views of the chest demonstrate the lungs to be symmetrically aerated without evidence of mass, infiltrate or effusion. The cardiomediastinal contours are unremarkable. Osseous structure s are intact. CONCLUSION: 1. No acute cardiopulmonary disease. Santi Silva MD on December 19, 2017 at 21:41 Board Certified Radiologist. This report was verified electronically.
[2017-12-19 22:06] VITALS: BP 126/68; PULSE 74; RESP 18; O2SAT 97
--- NOTE | 2017-12-19 22:21 | PD ---
HPI Chief Complaint: Chest Pain Time Seen by Provider: 21:04 Travel History International Travel<30 days: No Contact w/Intl Traveler<30days: No Traveled to known affect area: No History of Present Illness HPI 87-year-old male with history of COPD here for evaluation of chest pains. The patient reports that he was in an argument with his [employer] company as well as his son this evening, and afterwards began feeling a twinge in the left side of his chest. He states that these episodes lasted for a few seconds, then resolved. States that since being in the emergency department he has not had any further episodes. No dyspnea. No paresthesias or motor deficits. No fevers or recent illness. 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 PFSH Past Medical History Hx Anticoagulant Therapy: Yes (ASA DAILY) Arthritis: Yes Asthma: Yes Blood Disorders: No Cancer: Yes (Prostate ) Cardiovascular Problems: No COPD: Yes Diabetes: No Diminished Hearing: Yes ([place]) Endocrine: Yes Gastrointestinal Disorders: No Glaucoma: Yes Hepatitis: No Hiatal Hernia: No Hypertension: No Immune Disorder: No Implanted Vascular Access Dvce: No Medical other: Yes ([place]GEST[place]) Musculoskeletal: Yes (Chronic back pain ) Psychiatric: No Respiratory: Yes (COPD) Thyroid Disease: Yes Tetanus Vaccination: < 5 Years Influenza Vaccination: Yes Past Surgical History Abdominal Surgery: Yes (CHOLESTECTOMY) Cholecystectomy: Yes Genitourinary Surgery: Yes (Prostatectomy ) Joint Replacement: Yes (LEFT KNEE) Other Surgery: Yes (BL knees, lumbar ) Social History Alcohol Use: No Tobacco Use: No (QUIT 2008) Substance Use: No Allergies-Medications (Allergen,Severity, Reaction): Coded Allergies: naproxen (Unverified Allergy, Severe, Rash, 07/21/17) penicillin G (Unverified Allergy, Severe, RASH, 07/21/17) WAS STUNG BY BEE AT THE SAME TIME TAKING THE MEDICATION AND NOT SURE IF RASH FROM BEE OR PCN procaine (Unverified Allergy, Unknown, PT DOES NOT KNOW, 07/21/17) Reported Meds & Prescriptions Reported Meds & Active Scripts Active Reported Levothyroxine (Levothyroxine Sodium) 50 Mcg Tab 50 Mcg PO DAILY Cosopt Opth Drops (Dorzolamide-Timolol Opth Drops) 22.3-6.8 Mg/Ml Soln 1 Drop EACH EYE BID Review of Systems Except as stated in HPI: all other systems reviewed are Neg Physical Exam Narrative GENERAL: Well-developed, well-nourished, comfortable, no apparent distress. SKIN: Focused skin assessment warm/dry. No rash. HEAD: Atraumatic. Normocephalic. EYES: Pupils equal and round. No scleral icterus. No injection or drainage. ENT: Mucous membranes pink and moist. NECK: Trachea midline. No JVD. CARDIOVASCULAR: Regular rate and rhythm. Distal pulses brisk and equal bilaterally. RESPIRATORY: No accessory muscle use. Clear to auscultation. Breath sounds equal bilaterally. GASTROINTESTINAL: Abdomen soft, non-tender, nondistended. MUSCULOSKELETAL: No obvious deformities. No clubbing. No cyanosis. No edema. NEUROLOGICAL: Awake and alert. No obvious cranial nerve deficits. Motor grossly within normal limits. Normal speech. PSYCHIATRIC: Appropriate mood and affect; insight and judgment normal. Data Data Last Documented VS Vital Signs Date Time Temp Pulse Resp B/P (MAP) Pulse Ox O2 Delivery O2 Flow Rate FiO2 12/19/17 22:06 74 18 126/68 (87) 97 Room Air 12/19/17 20:56 98.4 Orders Orders Chest, Pa & Lat (12/19/17 ) Electrocardiogram (12/19/17 ) Ckmb (Isoenzyme) Profile (12/19/17 21:07) Complete Blood Count With Diff (12/19/17 21:07) Comprehensive Metabolic Panel (12/19/17 21:07) Magnesium (Mg) (12/19/17 21:07) Prothrombin Time / Inr (Pt) (12/19/17 21:07) Act Partial Throm Time (Ptt) (12/19/17 21:07) Troponin I (12/19/17 21:07) Ecg Monitoring (12/19/17 21:07) Iv Access Insert/Monitor (12/19/17 21:07) Oximetry (12/19/17 21:07) Sodium Chloride 0.9% Flush (Ns Flush) (12/19/17 21:15) Labs Laboratory Tests Test 12/19/17 21:04 White Blood Count 9.2 TH/MM3 Red Blood Count 4.24 MIL/MM3 Hemoglobin 12.0 GM/DL Hematocrit 37.4 % Mean Corpuscular Volume 88.2 FL Mean Corpuscular Hemoglobin 28.3 PG Mean Corpuscular Hemoglobin Concent 32.1 % Red Cell Distribution Width 12.9 % Platelet Count 253 TH/MM3 Mean Platelet Volume 7.6 FL Neutrophils (%) (Auto) 35.0 % Lymphocytes (%) (Auto) 50.8 % Monocytes (%) (Auto) 11.7 % Eosinophils (%) (Auto) 1.8 % Basophils (%) (Auto) 0.7 % Neutrophils # (Auto) 3.2 TH/MM3 Lymphocytes # (Auto) 4.6 TH/MM3 Monocytes # (Auto) 1.1 TH/MM3 Eosinophils # (Auto) 0.2 TH/MM3 Basophils # (Auto) 0.1 TH/MM3 CBC Comment DIFF FINAL Differential Comment Prothrombin Time 11.9 SEC Prothromb Time International Ratio 1.2 RATIO Activated Partial Thromboplast Time 29.6 SEC Blood Urea Nitrogen 16 MG/DL Creatinine 0.94 MG/DL Random Glucose 98 MG/DL Total Protein 7.3 GM/DL Albumin 3.3 GM/DL Calcium Level 8.8 MG/DL Magnesium Level 2.0 MG/DL Alkaline Phosphatase 93 U/L Aspartate Amino Transf (AST/SGOT) 25 U/L Alanine Aminotransferase (ALT/SGPT) 17 U/L Total Bilirubin 0.4 MG/DL Sodium Level 137 MEQ/L Potassium Level 4.3 MEQ/L Chloride Level 103 MEQ/L Carbon Dioxide Level 31.1 MEQ/L Anion Gap 3 MEQ/L Estimat Glomerular Filtration Rate 76 ML/MIN Total Creatine Kinase 44 U/L Troponin I LESS THAN 0.02 NG/ML MDM Medical Decision Making Medical Screen Exam Complete: Yes Emergency Medical Condition: Yes Interpretation(s) EKG: Sinus, rate 75, leftward axis, RBBB, no acute ischemic abnormality. Differential Diagnosis ACS, pneumothorax, pericarditis, PE, pneumonia, musculoskeletal pain Narrative Course Vital signs reviewed and are within normal limits. CBC: WBC 9.2, hemoglobin 12, hematocrit 37.4, platelets 253. CMP is unremarkable. Cardiac enzymes are negative. Chest x-ray: No acute cardio pulmonary disease. Patient was made aware of all findings. He is resting comfortably. Patient's pain does not seem cardiac in nature. He describes a "twinge" that lasts for several seconds. He did not have any of these episodes while in the emergency department. At this point I believe he is stable for discharge home with outpatient follow-up with his primary care physician in the next 2 days. He was advised on when to return to the emergency department. He verbalizes understanding and agreement with plan. Diagnosis Primary Impression: Non-cardiac chest pain Referrals: Ecology Professor 2 days Primary Care Physician 2 days Additional Instructions: Follow-up with your primary care physician in the next 1-2 days. Return to the emergency department for worsening symptoms or any other concerns. Disposition: 01 DISCHARGE HOME Condition: Stable Terry Ferguson MD Dec 19, 2017 22:21
[2017-12-19 22:54] VITALS: BP 126/64; PULSE 72; RESP 18; O2SAT 97
--- NOTE | 2017-12-20 14:38 | EKG ---
Date Performed: 12/19/2017 Time Performed: 20:56:27 PTAGE: 87 years EKG: Sinus rhythm WITH FIRST DEGREE AV BLOCK WITH OCCASIONAL VENTRICULAR PREMATURE COMPLEXES MARKED LEFT AXIS DEVIATIO N RIGHT BUNDLE BRANCH BLOCK POSSIBLE SEPTAL MYOCARDIAL INFARCTION ABNORMAL ECG PREVIOUS TRACING : 04/03/2017 18.51 Since the prior tracing, there has been no significant payne DOCTOR: Jolynn Marin Interpretating Date/Time 12/20/2017 14:35:23
== END 2017-12-19 22:58 | disposition home or self-care (01) ==
LOC: PHED 20:35
DX: R07.9 Chest pain, unspecified (principal); J44.9 Chronic obstructive pulmonary disease, unspecified; M19.90 Unspecified osteoarthritis, unspecified site; E07.9 Disorder of thyroid, unspecified; I44.0 Atrioventricular block, first degree; I45.10 Unspecified right bundle-branch block; R94.31 Abnormal electrocardiogram [ECG] [EKG]; Z79.899 Other long term (current) drug therapy; Z88.0 Allergy status to penicillin
CPT/HCPCS: 71046; 80053; 82550; 83735; 84484; 85025; 85610; 85730; 93005; 99285